=== PATIENT | female | born 2000 | race Caucasian/White ===

== ENCOUNTER 2023-06-15 13:40 | Emergency (ER) | payer MEDICAID ==
[~2023-06-15] VITALS: Ht 170.2 cm; Wt 82.3 kg
[~2023-06-15 13:40] MED LIST: BACTRIM DS 8001 TAB PO; DOXYCYCLINE 10100 MG PO; MACROBID 1100 MG/CAP PO; OMNICEF 300MG300 MG PO; PREDNISONE50 MG PO; VENTOLIN0.09 MG IH
[2023-06-15 13:54] VITALS: TEMP 98.9
[2023-06-15 14:40] VITALS: BP 96/58; PULSE 75
== END 2023-06-15 15:00 | disposition left against medical advice (07) ==
LOC: COL.ER 13:40
DX: O26.892 Other specified pregnancy related conditions, second trimester (principal); R55 Syncope and collapse; Z3A.25 25 weeks gestation of pregnancy